=== PATIENT | female | born 1990 | race Caucasian/White ===

== ENCOUNTER 2016-09-17 13:06 | Emergency (ER) | payer OTHER ==
[~2016-09-17] VITALS: Ht 170.2 cm; Wt 62.8 kg
[~2016-09-17 13:06] MED LIST: ALBUTEROL17 G1 IH; ANAPROX DS550 M1 PO; ATIVAN0.5 MG PO; BENADRYL ALLERG25 MG; CAMRESE 0.15-01 EACH PO; DIFLUCAN150 MG PO; DORYX200 MG PO; ENDOCET 5-3251 EACH PO; IBUPROFEN800 MG PO; LEXAPRO10 MG PO; MEDROXYPROGEST2.5 MG PO; MICONAZOLE 745 G1 VG; MOTRIN800 MG PO; NEXIUM40 MG PO; NIACIN; NOHOMEMEDS; PHENERGAN25 MG PR; PROAIR HFA8.5 GM IH; ULTRAM50 MG PO; VENTOLIN HFA18 GM IH; ZOFRAN4 MG PO
[2016-09-17 13:49] LABS: MCH 29.5 PG (29.0-34.0); MCHC 32.1 G/DL (30.0-36.0); MCV 91.9 FL (83-99); MEAN PLAT.VOLUME 10.1 uM^3 (9.5-12.4); PLATELET COUNT 285 K/uL (156-360); RBC DIS.WIDTH-CV 12.5 % (11.8-14.6); RBC DIS.WIDTH-SD 42.1 % (39-53); RED BLOOD COUNT 4.57 M/uL (3.80-5.20); WHITE BLOOD COUNT 10.4 K/uL (4.1-10.2)
[2016-09-17 14:00] LABS: CHLORIDE 106 mEq/L (99-109); POTASSIUM 3.7 mEq/L (3.7-5.4); SODIUM 137 mEq/L (136-147)
[2016-09-17 14:02] LABS: GLUCOSE 111 mg/dL (70-99)
[2016-09-17 14:03] LABS: ANION GAP 9 MEQ/L (2-14)
[2016-09-17 14:06] LABS: GFR ESTIMATE (CALCULATED) > 59 mL/min/
[2016-09-17 14:07] LABS: UREA NITROGEN (BUN) 8 mg/dL (9-23)
[2016-09-17 14:10] LABS: TROP-I INTERPRETATION NEGATIVE; TROPONIN-I < 0.01 ng/mL (0.0-0.30)
[2016-09-17 15:27] LABS: D-DIMER ELISA 0.43 mg/L FEU (< 0.57)
[2016-09-17 18:21] VITALS: BP 102/60
== END 2016-09-17 18:22 | disposition home or self-care (01) ==
LOC: EME 13:06
DX: R07.9 Chest pain, unspecified (principal); F41.9 Anxiety disorder, unspecified; J45.909 Unspecified asthma, uncomplicated; Z87.891 Personal history of nicotine dependence
CPT/HCPCS: 71020; 80048; 84484; 85027; 85379; 93005; 99281; 99284

== ENCOUNTER 2017-01-16 16:50 | Emergency (ER) | payer OTHER ==
[~2017-01-16] VITALS: Ht 167.6 cm; Wt 63.5 kg
[2017-01-16 17:59] LABS: INTERNAL CONTROL VALID? YES
[2017-01-16] MEDS ORDERED: PREDNISONE20 MG PO (19:56)
[2017-01-16 20:12] VITALS: BP 125/81
== END 2017-01-16 20:14 | disposition home or self-care (01) ==
LOC: EME 16:50
PROVIDERS: Nurse Practitioner Family
DX: R06.02 Shortness of breath (principal); J45.909 Unspecified asthma, uncomplicated; Z87.891 Personal history of nicotine dependence; F32.9 Major depressive disorder, single episode, unspecified; K21.9 Gastro-esophageal reflux disease without esophagitis; F41.9 Anxiety disorder, unspecified
CPT/HCPCS: 71020; 84703; 87651 90; 94640; 99281; 99284; J7512

== ENCOUNTER 2017-02-24 02:01 | Emergency (ER) | payer OTHER ==
[~2017-02-24] VITALS: Ht 170.2 cm; Wt 66.5 kg
[~2017-02-24 02:01] MED LIST changes: +PREDNISONE20 MG PO
[2017-02-24] MEDS ORDERED: SUDAFED PE PRE1 EAC1 PO (04:03)
[2017-02-24] MEDS ORDERED: AUGMENTIN875 MG PO (04:03)
[2017-02-24 04:58] VITALS: BP 108/90
== END 2017-02-24 04:58 | disposition home or self-care (01) ==
LOC: EME 02:01
DX: J02.9 Acute pharyngitis, unspecified (principal); R11.0 Nausea; J45.909 Unspecified asthma, uncomplicated
CPT/HCPCS: 87651 90; 99281; 99284